=== PATIENT | male | born 1965 | race Caucasian/White ===

== ENCOUNTER → 2023-12-17 07:44 | Outpatient (REF) | payer BC, SELFPAY | LOC: RAD 07:44 | PROVIDERS: ATTENDING PHYSICIAN Internal Medicine Gastroenterology; FAMILY PHYSICIAN Family Medicine | DX: D69.6 Thrombocytopenia, unspecified (principal) | CPT/HCPCS: 76700 ==

== ENCOUNTER 2023-12-23 06:25 | Day surgery (SDC) | payer BC, SELFPAY ==
[2023-12-23 11:22] VITALS: BMI 48.1
[2023-12-23 11:23] VITALS: BMI 48.1
[2023-12-23 11:25] VITALS: BP 139/90
[2023-12-23 12:01] LABS: Glucose - Point of Care 103 mg/dl (70-99)
[2023-12-23] MEDS: COREG 12.5 MG PO (12:13)
[2023-12-23 13:35] VITALS: BP 126/82
[2023-12-23 13:45] VITALS: BP 147/88
[2023-12-23 14:00] VITALS: BP 143/100
[2023-12-23 14:15] VITALS: BP 160/98
== END 2023-12-23 14:20 | disposition home or self-care (01) ==
LOC: SDS 06:25
PROVIDERS: ATTENDING PHYSICIAN Internal Medicine Gastroenterology
DX: D50.0 Iron deficiency anemia secondary to blood loss (chronic) (principal); D12.3 Benign neoplasm of transverse colon; K63.5 Polyp of colon; K51.40 Inflammatory polyps of colon without complications; K57.30 Diverticulosis of large intestine without perforation or abscess without bleeding; D17.5 Benign lipomatous neoplasm of intra-abdominal organs; K64.0 First degree hemorrhoids; K29.80 Duodenitis without bleeding; K29.50 Unspecified chronic gastritis without bleeding; K22.89 Other specified disease of esophagus; K44.9 Diaphragmatic hernia without obstruction or gangrene; K31.89 Other diseases of stomach and duodenum; K31.7 Polyp of stomach and duodenum; K31.819 Angiodysplasia of stomach and duodenum without bleeding; R12 Heartburn
CPT/HCPCS: 43255; 45380; 43239; 88305; 82962; 88342

== ENCOUNTER 2024-01-07 14:51 | Emergency (ER) | payer BC, SELFPAY ==
[2024-01-07 14:59] VITALS: BP 140/94
[2024-01-07 15:25] LABS: Urine Albumin 1+ (Neg - Trace); Urine Bilirubin 1+ (Negative); Urine Character Clear (Clear); Urine Color Yellow; Urine Glucose Negative (Negative); Urine Ketone Negative (Negative); Urine Leukocyte Trace (Negative); Urine Nitrite Negative (Negative); Urine Occult Blood 1+ (Negative); Urine Urobilinogen 3+ (Neg - 1+)
[2024-01-07 15:27] LABS: % Basophils 0.2 % (0-2); % Eosinophils 0.4 % (0-6); % Immature Granulocytes 0.4 % (0-0.5); % Monocytes 6.7 % (1.7-9.3); % Neutrophils 78.3 % (42.2-75.2); Absolute Lymphocytes 1.5 10^3/uL (1.2-3.4); Absolute Monocytes 0.7 10^3/uL (0.1-0.6); Absolute Neutrophils 8.5 10^3/uL (1.4-6.5); Hematocrit 37.8 % (39.0-52.0); Hemoglobin 11.3 g/dL (13.0-18.0); Mean Corp Hgb Conc. 29.9 g/dL (33.0-37.0); Mean Corpuscular Hgb 20.7 pg (27.0-31.0); Mean Corpuscular Volume 69.2 fL (80.0-94.0); Mean Platelet Volume 7.7 fL (7.4-10.4); Nucleated Red Blood Cells % 0 % (-); Platelet Count 147 10^3/uL (130-400); Red Blood Cell Count 5.46 10^6/uL (4.70-6.10); White Blood Cell Count 10.8 10^3/uL (4.8-10.8)
[2024-01-07 15:38] LABS: ALT (SGPT) 16 U/L (0-50); AST (SGOT) 30 U/L (17-59); Albumin 4.6 g/dl (3.5-5.0); Alkaline Phosphatase 119 U/L (38-126); Blood Urea Nitrogen 14 mg/dl (9-20); Calcium 9.7 mg/dl (8.4-10.2); Carbon Dioxide 31 mmol/L (22-30); Chloride 99 mmol/L (98-107); Glucose 116 mg/dl (70-99); Lipase 173 U/L (23-300); Potassium 3.7 mmol/L (3.5-5.1); Sodium 137 mmol/L (135-145); Total Bilirubin 1.1 mg/dl (0.2-1.3); Total Protein 7.9 g/dl (6.3-8.2); eGFR 58.62
[2024-01-07 15:42] LABS: Urine Bacteria Moderate (Negative); Urine White Cell 0-2 /HPF (0-5)
--- NOTE | 2024-01-07 16:46 | ED.GENMED ---
History of Present Illness
General
Chief Complaint: Abdominal Symptoms
Time Seen by Provider: 01/07/24 16:17
Travel History
Have you had any contact with someone who has COVID-19?: No
Do you have any symptoms of coronavirus? Fever > 100 degrees, chills, cough, shortness of breath, sore throat, loss of taste or smell, muscle aches, or headache?: No
History of Present Illness
History of Present Illness:
Patient presents the emergency department with nausea for 3 days. Notes 1 episode of vomiting. Denies abdominal pain. Denies urinary symptoms though he states each time he has got nauseated in the past he has developed a UTI. Patient has a
history of a kidney tumor and had a partial nephrectomy on the left denies fever.
Phy Exam
Physical Exam
Physical Exam:
GENERAL APPEARANCE: NAD, well developed/ well nourished, obese male
EYES lids/conjunctiva normal
EARS/NOSE/THROAT Mucous membranes moist, uvula midline without oral pharyngeal erythema, exudate or swelling
HEAD/NECK normocephalic atraumatic, neck is supple.
RESPIRATORY respiratory effort normal, speaks in full sentences, no accessory muscle use. Lungs clear to auscultation without rhonchi, wheezes, rales
CARDIAC Regular rate and rhythm, no edema.
ABDOMINAL Soft, ND/NT. No pulsatile masses on exam, rebound tenderness, Shaikh sign or pain over Mcburney's point.
MUSCLES/EXTREMITIES No abnormal range of motion, no swelling.
SKIN Warm, pink and dry. No rashes
NEUROLOGICAL Speech is clear and appropriate. Normal level of consciousness. 5/5 strength in all extremities.
PSYCH Normal mood and affect. Judgement/competence is appropriate
Course
Orders/Labs/Results
Orders:
Orders
01/07/24 15:08
CBC/With Diff [Complete Blood Count/With Diff] Urgent
CMP [Comprehensive Metabolic Panel] Urgent
Lipase Urgent
01/07/24 15:10
Urinalysis Reflex To Culture Urgent
Date Specimen was Collected: 01/07/24
Time Specimen was Collected: 15:04
Urine Microscopic Reflex Cult Urgent
Urine Culture Urgent
GURVINDER Source: U
Specimen Description:
Date Specimen was Collected: 01/07/24
Time Specimen was Collected: 15:04
01/07/24 17:08
Ondansetron Orally Disint [Zofran Odt (Orally Disintegrating)] 4 mg PO NOW STA
01/07/24 17:09
Ondansetron Orally Disint [Zofran Odt (Orally Disintegrating)] 4 mg .ROUTE .STK-MED ONE
Abnormal Lab Results
01/07/24 01/07/24
15:08 15:10
Hgb 11.3 L g/dL
(13.0-18.0)
Hct 37.8 L %
(39.0-52.0)
MCV 69.2 L fL
(80.0-94.0)
MCH 20.7 L pg
(27.0-31.0)
MCHC 29.9 L g/dL
(33.0-37.0)
RDW 18.0 H %
(11.5-14.5)
Absolute Neuts (auto) 8.5 H 10^3/uL
(1.4-6.5)
Absolute Monos (auto) 0.7 H 10^3/uL
(0.1-0.6)
Neutrophils % 78.3 H %
(42.2-75.2)
Lymphocytes % 14.0 L %
(20.5-51.1)
Carbon Dioxide 31 H mmol/L
(22-30)
Creatinine 1.4 H mg/dL
(0.7-1.3)
Glucose 116 H mg/dl
(70-99)
Ur Occult Blood Reflex 1+ A
(Negative)
Urine Bilirubin 1+ A
(Negative)
Urine Urobilinogen 3+ A
(Neg - 1+)
Leukocyte Esterase Rfl Trace A
(Negative)
Urine RBC 11-15 A /HPF
(0-2)
Urine Bacteria (Reflex) Moderate A
(Negative)
Urine Albumin (Reflex) 1+ A
(Neg - Trace)
01/07/24 15:08
01/07/24 15:08
Vital Signs
Initial and Last Documented VS:
Initial Vital Signs
Temp Pulse Resp BP Pulse Ox
97.9 F 99 20 140/94 100
01/07/24 14:59 01/07/24 14:59 01/07/24 14:59 01/07/24 14:59 01/07/24 14:59
Last Documented Vital Signs
Temp Pulse Resp BP Pulse Ox
97.9 F 90 18 139/02 98
01/07/24 14:59 01/07/24 17:12 01/07/24 17:12 01/07/24 17:12 01/07/24 17:12
*Critical Care Note
Total Time (30-74mins, 75-104mins- exclusive of procedures): Not Applicable
ED Attending Note
ED Attending Note
ED Attending Note:
Patient overall very well-appearing. Nontoxic. Afebrile. No evidence of sepsis. Urine with leuk esterase as well as some hematuria and bacteria in the urine. Given patient's history of recurrent UTIs, will treat as infection. Creatinine is
lower than his baseline.
-
Portions of this chart may have been created with voice recognition software.� Occasional wrong word or��sound alike� substitutions may have occurred due to the inherent limitations of voice recognition software.
Discharge Plan
Departure
Patient Disposition: Home (Routine Discharge)
Date of Disposition: 01/07/24
Time of Disposition: 16:50
Patient with high blood pressure during this ER visit?: Yes
Discharge Problem:
Nausea & vomiting, Acute UTI
Instructions: Urinary Tract Infection, Adult ED
Prescriptions:
New
cefdinir 300 mg capsule
300 mg PO BID 7 Days Qty: 14 0RF
ondansetron HCl 4 mg tablet
4 mg PO Q8H PRN (Reason: nausea and vomiting) Qty: 10 0RF
No Action
atorvastatin 40 mg Tablet
40 mg PO DAILY
carvedilol 6.25 mg Tablet
12.5 mg PO DAILY
tamsulosin [Flomax] 0.4 mg Capsule
0.4 mg PO HS
omeprazole 20 mg Capsule,Delayed Release(Dr/Ec)
20 mg PO BID
hydrochlorothiazide 25 mg Tablet
25 mg PO DAILY
paroxetine HCl 40 mg Tablet
80 mg PO Daily
pregabalin 100 mg Capsule
100 mg PO TID
buprenorphine HCl [Belbuca] 450 mcg Film
450 mcg BUCCAL Q12H PRN (Reason: pain)
cyclobenzaprine 5 mg Tablet
10 mg PO DAILY
alprazolam [Xanax] 0.5 mg Tablet
0.5 mg PO DAILY
zolpidem [Ambien] 10 mg Tablet
10 mg PO HS PRN (Reason: Sleep)
Rx Instructions:
WHEN NOT TAKING XANAX
finasteride 5 mg Tablet
5 mg PO HS
allopurinol 100 mg Tablet
100 mg PO DAILY Qty: 30 1RF
cyclobenzaprine [Flexeril] 5 mg Tablet
5 mg PO BID
Rx Instructions:
2 in am, 1 at night
Mounjaro 5 mg/0.5 mL Pen Injector
5 mg SC QWEEK
Activity Restrictions/Additional Instructions:
Please follow-up with your doctor to ensure that your urine normalizes after the antibiotics. Return to the emergency department with new or worsening symptoms.
Interventions
Interventions:
*Risk Screen - Suicide Last Done: 01/07/24 14:59
*General Assessment Last Done: 01/07/24 14:59
*Neglect/Abuse Screening Last Done: 01/07/24 14:59
ED- Fall Risk Assessment Last Done: 01/07/24 16:48
*ED COVID-19 Vaccine History Last Done: 01/07/24 16:48
*Nursing Disposition Last Done: 01/07/24 17:12
QP-Ebavsf-Jdqnukrgcr Assessment Last Done: 01/07/24 16:24
Discharge Date and Time
Discharge Date/Time: 01/07/24 17:12
Print Language: CITIZEN OF [place]
[2024-01-07] MEDS: ZOFRAN ODT (ORALLY DISINTEGRATING) 4 MG PO (17:10)
[2024-01-07 17:12] VITALS: BP 139/02
== END 2024-01-07 17:12 | disposition home or self-care (01) ==
LOC: EMR 14:51
PROVIDERS: Emergency Medicine; EMERGENCY PHYSICIAN Emergency Medicine; FAMILY PHYSICIAN Family Medicine
DX: R11.2 Nausea with vomiting, unspecified (principal); N39.0 Urinary tract infection, site not specified; R03.0 Elevated blood-pressure reading, without diagnosis of hypertension
CPT/HCPCS: 99283; 80053; 81003; 81015; 83690; 85025; 87086

== ENCOUNTER 2024-01-28 10:08 | Outpatient (RCR) | payer BC, SELFPAY ==
[2023-12-31] MEDS: VENOFER 110 MG IV (14:33)
[2023-12-31 14:35] VITALS: BP 153/90
[2023-12-31 15:48] VITALS: BP 130/78
[2024-01-13 11:40] VITALS: BP 134/86
[2024-01-13] MEDS: VENOFER 110 MG IV (12:00)
[2024-01-13 13:20] VITALS: BP 149/94
[2024-01-21] MEDS: VENOFER 110 MG IV (10:40)
[2024-01-21 10:42] VITALS: BP 143/83
[2024-01-28] MEDS: TYLENOL 1000 MG PO (10:30)
[2024-01-28] MEDS: VENOFER 110 MG IV (10:31)
[2024-01-28 10:55] VITALS: BP 163/100
--- NOTE | 2024-01-28 15:46 | PTCARENOTE ---
1135 pt c/o pain in left shoulder from prior rotator cuff injury, tylenol 100mg PO given, Di Olivera in to see patient. Pt d/c after Venofer infusion and assisted to emergency room for evaluation of pain.
== END 2024-01-30 23:59 | disposition home or self-care (01) ==
LOC: OID 10:08
PROVIDERS: ATTENDING PHYSICIAN Internal Medicine Gastroenterology; FAMILY PHYSICIAN Family Medicine
DX: D50.0 Iron deficiency anemia secondary to blood loss (chronic) (principal); K92.1 Melena
CPT/HCPCS: 80053; 81003; 81015; 84484; 85025; 93005; 96365; J1756

== ENCOUNTER 2024-01-28 11:48 | Emergency (ER) | payer BC, SELFPAY ==
[2024-01-28 11:50] VITALS: BP 170/116
--- NOTE | 2024-01-28 13:21 | ED.GENMED ---
History of Present Illness
General
Chief Complaint: Musculo-Skeletal Complaint
Source: patient
Exam Limitations: none
Time Seen by Provider: 01/28/24 13:10
Travel History
Have you had any contact with someone who has COVID-19?: No
Do you have any symptoms of coronavirus? Fever > 100 degrees, chills, cough, shortness of breath, sore throat, loss of taste or smell, muscle aches, or headache?: No
History of Present Illness
History of Present Illness:
58-year-old male with past medical history of renal cancer with partial left nephrectomy, hypertension iron deficiency anemia chronic left shoulder pain chronic back pain on chronic pain medication, Belbuca every 12 hours presents to the ER for
exacerbation of his chronic left shoulder pain. He was getting iron infusion today at the hospital and because of increased pain presented here to the ER for evaluation. He complains of pain with any movement to his left shoulder but also has pain
at rest and feels pain in the upper chest. This pain including the upper chest pain is normal consistent chronic shoulder pain. No shortness of breath. He has follow-up with orthopedics Dr. Camejo. He is also followed by pain management
[facility] pain and spine doctor Reid.
He forgot to take his Belbuca today because of rushing to get to the hospital for his iron transfusion
Review of Systems
Review of Systems
Allergies reviewed?: Yes
All Other Systems: ROS reviewed and negative except as documented in HPI and ROS
Constitutional: Reports no symptoms; Denies fever, fatigue or chills
EENT: Reports no symptoms
Respiratory: Reports no symptoms; Denies trouble breathing
Cardiac: Reports other (left shoulder pain radiates to left upper chest (same as previous ) )
ABD/GI: Reports no symptoms
Musculoskeletal: Reports other (left shoulder pain )
Skin: Reports no symptoms
Neurological: Reports no symptoms
Psychiatric: Reports no symptoms
Phy Exam
General Physical Exam
General Presentation: no apparent distress
General age: appears stated age
General Skin: warm and dry
General Habitus: obese
General Mental: alert
General Hydration: appears well hydrated
Cardiovascular Exam
Cardiovascular Exam: regular rate/rhythm, no murmur and normal peripheral pulses
Pulmonary Exam
Pulmonary Exam: lungs clear and no respiratory distress
Neurological Exam
Neurological Exam: alert and oriented x3
Musculoskeletal Exam
Musculoskeletal Exam: other (Normal inspection to left shoulder pain with abduction no swelling normal distal incisions on distal pulses)
Skin Exam
Skin Exam: normal color and warm/dry
Psychiatric Exam
Psychiatric Exam: normal mood/affect
Course
Orders/Labs/Results
Orders:
Orders
01/28/24 11:52
ECG [Electrocardiogram (*1)] Urgent
Reason for Study: Other
Other Reason for Exam: L shoulder pain
EKG- Treatment ONCE
01/28/24 13:30
Cardiac Monitoring- Treatment ONCE
IV Insert/Care/Rem.- Treatment PRN
HYDROmorphone [Dilaudid] 1 mg IV NOW STA
01/28/24 13:38
Complete Blood Count/With Diff Urgent
Comprehensive Metabolic Panel Urgent
Troponin I Stat
01/28/24 15:23
UA Reflex to Culture [Urinalysis Reflex To Culture] Urgent
Date Specimen was Collected: 01/28/24
Time Specimen was Collected: 15:16
Urine Microscopic Reflex Cult Urgent
Abnormal Lab Results
01/28/24 01/28/24
13:38 15:23
WBC 15.5 H 10^3/uL
(4.8-10.8)
RBC 4.51 L 10^6/uL
(4.70-6.10)
Hgb 10.0 L g/dL
(13.0-18.0)
Hct 33.3 L %
(39.0-52.0)
MCV 73.8 L fL
(80.0-94.0)
MCH 22.2 L pg
(27.0-31.0)
MCHC 30.0 L g/dL
(33.0-37.0)
RDW 19.9 H %
(11.5-14.5)
Plt Count 99 L 10^3/uL
(130-400)
Abs Immat Gran (auto) 0.1 H 10^3/uL
(0-0.05)
Absolute Neuts (auto) 13.8 H 10^3/uL
(1.4-6.5)
Absolute Lymphs (auto) 0.7 L 10^3/uL
(1.2-3.4)
Absolute Monos (auto) 0.8 H 10^3/uL
(0.1-0.6)
Neutrophils % 89.3 H %
(42.2-75.2)
Lymphocytes % 4.5 L %
(20.5-51.1)
Potassium 3.3 L mmol/L
(3.5-5.1)
Glucose 135 H mg/dl
(70-99)
Ur Occult Blood Reflex 4+ A
(Negative)
Urine RBC 7-10 A /HPF
(0-2)
01/28/24 13:38
01/28/24 13:38
Vital Signs
Initial and Last Documented VS:
Initial Vital Signs
Temp Pulse Resp BP Pulse Ox
99.8 F 121 20 170/116 97
01/28/24 11:50 01/28/24 11:50 01/28/24 11:50 01/28/24 11:50 01/28/24 11:50
Last Documented Vital Signs
Temp Pulse Resp BP Pulse Ox
99.8 F 102 9 156/101 89
01/28/24 11:50 01/28/24 15:15 01/28/24 15:07 01/28/24 16:00 01/28/24 16:15
MDM/Problems Addressed
Differential Diagnosis Includes:
Not limited to exacerbation of chronic pain
MDM/Problems Addressed:
Patient is a 58-year-old male with history of chronic pain followed by pain management and orthopedics. Patient has chronic left shoulder pain presents with exacerbation of his chronic pain. He was having iron transfusion here in the hospital
because his pain came to the ER. With his pain he has had some pain in his left chest as well but this is not new. He reports pain radiates from shoulder to chest normally. With this complaint labs were checked including troponin which was
negative. He has no cardiac history. No acute EKG changes. No shortness of breath lungs are clear nontachypneic
he is on Belbuca twice daily and did not take it this morning. he ER. He presents awake alert no acute distress he presents tachycardic however not symptomatic. He was given a dose of pain medication. Heart rate between 99 and 100. White count
is mildly elevated however patient has no complaints of fevers or infectious complaints. He does have history of UTI however no acute findings in urine, normal renal function.
Patient comfortable feeling much better after 1 dose of pain medication will DC with outpatient pelvis painting manager and Ortho
*Pulse Oximetry
Patient hypoxic: no
*EKG
Interpreted by ED Provider?: Yes
*Critical Care Note
Total Time (30-74mins, 75-104mins- exclusive of procedures): Not Applicable
ED Attending Note
-
Portions of this chart may have been created with voice recognition software.� Occasional wrong word or��sound alike� substitutions may have occurred due to the inherent limitations of voice recognition software.
Discharge Plan
Departure
Patient Disposition: Home (Routine Discharge)
Date of Disposition: 01/28/24
Time of Disposition: 17:00
Patient with high blood pressure during this ER visit?: Yes
Condition: Fair
Covid-19: Not Applicable
Discharge Problem:
Chronic shoulder pain
Instructions: Muscle and Bone Pain (DC), BLOOD PRESSURE
Prescriptions:
No Action
atorvastatin 40 mg Tablet
40 mg PO DAILY
carvedilol 6.25 mg Tablet
12.5 mg PO DAILY
tamsulosin [Flomax] 0.4 mg Capsule
0.4 mg PO HS
omeprazole 20 mg Capsule,Delayed Release(Dr/Ec)
20 mg PO BID
Rx Instructions:
TAKES AM AND NOON
hydrochlorothiazide 25 mg Tablet
25 mg PO DAILY
paroxetine HCl 40 mg Tablet
80 mg PO Daily
pregabalin 100 mg Capsule
100 mg PO TID
buprenorphine HCl [Belbuca] 450 mcg Film
450 mcg BUCCAL Q12H PRN (Reason: pain)
cyclobenzaprine 5 mg Tablet
10 mg PO TID
alprazolam [Xanax] 0.5 mg Tablet
0.5 mg PO 1XD
zolpidem [Ambien] 10 mg Tablet
10 mg PO HS PRN (Reason: Sleep)
Rx Instructions:
WHEN NOT TAKING XANAX
finasteride 5 mg Tablet
5 mg PO HS
allopurinol 100 mg Tablet
100 mg PO DAILY Qty: 30 1RF
Mounjaro 5 mg/0.5 mL Pen Injector
5 mg SC QWEEK
Patient Comments:
TAKES ON MONDAYS
omeprazole 40 mg Capsule,Delayed Release(Dr/Ec)
40 mg PO HS
cefdinir 300 mg capsule
300 mg PO BID 7 Days Qty: 14 0RF
ondansetron HCl 4 mg tablet
4 mg PO Q8H PRN (Reason: nausea and vomiting) Qty: 10 0RF
Referrals:
Eder Lord DO [Family Provider] -
Activity Restrictions/Additional Instructions:
Follow-up with your painting manager as well as orthopedic surgeon in the next several days. Continue to take your previously prescribed pain medication return if any worsening of symptoms
Interventions
Interventions:
*Risk Screen - Suicide Last Done: 01/28/24 13:39
*General Assessment Last Done: 01/28/24 13:39
*Neglect/Abuse Screening Last Done: 01/28/24 13:39
*ED COVID-19 Vaccine History Last Done: 01/28/24 11:50
ED-Musculoskeletal Assessment Last Done: 01/28/24 12:03
Discharge Date and Time
Print Language: [place]
[2024-01-28 13:39] VITALS: BMI 49.0
[2024-01-28 13:40] VITALS: BP 159/93
[2024-01-28] MEDS: DILAUDID 1 MG IV (13:40)
[2024-01-28 13:54] LABS: % Basophils 0.1 % (0-2); % Eosinophils 0.5 % (0-6); % Immature Granulocytes 0.4 % (0-0.5); % Lymphocytes 4.5 % (20.5-51.1); % Monocytes 5.2 % (1.7-9.3); % Neutrophils 89.3 % (42.2-75.2); Absolute Eosinophils 0.1 10^3/uL (0-0.7); Absolute Immature Granulocytes 0.1 10^3/uL (0-0.05); Absolute Lymphocytes 0.7 10^3/uL (1.2-3.4); Absolute Monocytes 0.8 10^3/uL (0.1-0.6); Absolute Neutrophils 13.8 10^3/uL (1.4-6.5); Hematocrit 33.3 % (39.0-52.0); Mean Corpuscular Hgb 22.2 pg (27.0-31.0); Mean Corpuscular Volume 73.8 fL (80.0-94.0); Mean Platelet Volume 8.1 fL (7.4-10.4); Nucleated Red Blood Cells % 0 % (-); Platelet Count 99 10^3/uL (130-400); Red Blood Cell Count 4.51 10^6/uL (4.70-6.10); Red Cell Dist. Width 19.9 % (11.5-14.5); White Blood Cell Count 15.5 10^3/uL (4.8-10.8)
[2024-01-28 14:00] VITALS: BP 155/100
[2024-01-28 14:04] LABS: ALT (SGPT) < 10 U/L (0-50); AST (SGOT) 21 U/L (17-59); Albumin 3.6 g/dl (3.5-5.0); Alkaline Phosphatase 96 U/L (38-126); Blood Urea Nitrogen 19 mg/dl (9-20); Calcium 8.7 mg/dl (8.4-10.2); Carbon Dioxide 30 mmol/L (22-30); Chloride 100 mmol/L (98-107); Estimated Creatinine Clearance 108 ml/min; Glucose 135 mg/dl (70-99); Potassium 3.3 mmol/L (3.5-5.1); Sodium 137 mmol/L (135-145); Total Bilirubin 0.7 mg/dl (0.2-1.3); Total Protein 6.4 g/dl (6.3-8.2); eGFR > 60.00
[2024-01-28 14:15] LABS: Troponin I < 0.012 ng/ml
[2024-01-28 15:26] VITALS: BP 153/89
[2024-01-28 15:52] LABS: Urine Albumin Trace (Neg - Trace); Urine Bilirubin Negative (Negative); Urine Character Clear (Clear); Urine Color Yellow; Urine Glucose Negative (Negative); Urine Ketone Negative (Negative); Urine Leukocyte Negative (Negative); Urine Nitrite Negative (Negative); Urine Occult Blood 4+ (Negative); Urine Specific Gravity 1.015 (<1.030); Urine Urobilinogen Negative (Neg - 1+)
[2024-01-28 16:00] VITALS: BP 156/101
== END 2024-01-28 17:16 | disposition home or self-care (01) ==
LOC: EMR 11:48
PROVIDERS: Nurse Practitioner; EMERGENCY PHYSICIAN Emergency Medicine; FAMILY PHYSICIAN Family Medicine
DX: R07.89 Other chest pain (principal); M25.512 Pain in left shoulder; G89.29 Other chronic pain; Z87.440 Personal history of urinary (tract) infections; Z85.528 Personal history of other malignant neoplasm of kidney; Z90.5 Acquired absence of kidney
CPT/HCPCS: 99284; 96374; 80053; 81003; 81015; 84484; 85025; 93005

== ENCOUNTER 2024-02-06 11:06 | Outpatient (RCR) | payer BC, SELFPAY ==
[2024-02-06 11:32] VITALS: BP 131/91
[2024-02-06] MEDS: VENOFER 110 MG IV (11:51)
[2024-02-06 13:30] VITALS: BP 151/95
== END 2024-02-09 08:53 | disposition home or self-care (01) ==
LOC: OID 11:06
PROVIDERS: ATTENDING PHYSICIAN Internal Medicine Gastroenterology; FAMILY PHYSICIAN Family Medicine
DX: D50.0 Iron deficiency anemia secondary to blood loss (chronic) (principal); K92.1 Melena
CPT/HCPCS: 96365; J1756